=== PATIENT | female | born 1975 | race Caucasian/White ===

== ENCOUNTER → 2020-12-23 | Outpatient (CLI) | payer OTHER ==
[~2020-12-23] MED LIST: AUGMENTIN 875-1 EACH PO; CORTISPORIN OTI10 M1 EARLF; HYDROCODON-ACE1 EAC4 PO; IBU800 MG PO; IBUPROFEN600 MG PO; KEFLEX500 MG PO; MAXITROL EYE DRO5 ML EARRT; NORCO 5-325 TA1 EACH PO; OMNICEF 300 MG300 MG PO; ZOFRAN ODT 4 MG4 MG PO; ZOFRAN ODT 4 MG4 MG SL
== END ==
LOC: KOH-I 13:26
DX: M54.2 Cervicalgia (principal); M47.812 Spondylosis without myelopathy or radiculopathy, cervical region
CPT/HCPCS: 72040

== ENCOUNTER 2021-03-31 21:24 | Emergency (ER) | payer OTHER ==
[~2021-03-31 21:24] MED LIST changes: -HYDROCODON-ACE1 EAC4 PO; -OMNICEF 300 MG300 MG PO; -ZOFRAN ODT 4 MG4 MG SL
[2021-03-31 22:01] LABS: HEMOGLOBIN 15.2 gm/dl (12.3-15.3); RED BLOOD COUNT 4.71 M/UL (4.00-5.10); WHITE BLOOD COUNT 15.7 K/UL (4.5-11.0)
[2021-03-31 22:37] LABS: BUN/CREATININE RATIO 25 (0-10)
[2021-03-31] MEDS ORDERED: OMNICEF 300 MG300 MG PO (23:51)
[2021-03-31] MEDS ORDERED: ZOFRAN ODT 4 MG4 MG SL (23:51)
[2021-03-31] MEDS ORDERED: IBUPROFEN600 MG PO (23:51)
[2021-03-31] MEDS ORDERED: HYDROCODON-ACE1 EAC4 PO (23:51)
== END 2021-04-01 00:04 | disposition home or self-care (01) ==
LOC: ER1 21:24
PROVIDERS: Emergency Medicine
DX: N12 Tubulo-interstitial nephritis, not specified as acute or chronic (principal); N39.0 Urinary tract infection, site not specified; J44.9 Chronic obstructive pulmonary disease, unspecified; F17.200 Nicotine dependence, unspecified, uncomplicated
CPT/HCPCS: 80053; 81001; 83690; 84703; 85025; 87077; 87086; 87186; 96374; 96375; 99284; J0696; J1885; J2405; Q9967

== ENCOUNTER → 2021-08-29 | Outpatient (CLI) | payer OTHER ==
[~2021-08-29] MED LIST changes: +HYDROCODON-ACE1 EAC4 PO; +OMNICEF 300 MG300 MG PO; +ZOFRAN ODT 4 MG4 MG SL
== END ==
LOC: EXRD 14:15
DX: E04.2 Nontoxic multinodular goiter (principal); Z79.899 Other long term (current) drug therapy
CPT/HCPCS: 76536

== ENCOUNTER → 2021-10-09 | Outpatient (CLI) | payer OTHER ==
[2021-10-09 15:16] LABS: HEMOGLOBIN 14.8 gm/dl (12.3-15.3); RED BLOOD COUNT 4.66 M/UL (4.00-5.10); WHITE BLOOD COUNT 8.1 K/UL (4.5-11.0)
[2021-10-10 07:11] LABS: CALCIUM, SERUM 9.4 mg/dL (8.7-10.2); CREATININE, SERUM 0.6 mg/dL (0.57-1.00); POTASSIUM, SERUM 4.6 mmol/L (3.5-5.2)
== END ==
LOC: LAB 14:07
PROVIDERS: Surgery
DX: E04.2 Nontoxic multinodular goiter (principal)
CPT/HCPCS: 36415; 71046; 80048; 85025; 93005

== ENCOUNTER → 2021-11-21 | Outpatient (CLI) | payer OTHER | LOC: KOH-I 11:16 | DX: M25.512 Pain in left shoulder (principal); M25.511 Pain in right shoulder; M50.30 Other cervical disc degeneration, unspecified cervical region | CPT/HCPCS: 72040; 73030 ==

== ENCOUNTER → 2021-11-24 | Outpatient (CLI) | payer OTHER | LOC: HEART 5 09:13 | DX: Z87.09 Personal history of other diseases of the respiratory system (principal) | CPT/HCPCS: 94060; 94729 ==

== ENCOUNTER → 2022-01-18 | Outpatient (CLI) | payer OTHER | LOC: HEART 5 10:36 | DX: R06.02 Shortness of breath (principal); R07.9 Chest pain, unspecified; I27.20 Pulmonary hypertension, unspecified; I07.1 Rheumatic tricuspid insufficiency | CPT/HCPCS: 93306 ==